=== PATIENT | male | born 1965 | race Hispanic/Latino ===

== ENCOUNTER 2019-10-21 14:02 | Inpatient (IN) | payer SELFPAY ==
[~2019-10-21] VITALS: Ht 152.4 cm; Wt 80.8 kg
--- NOTE | 2019-10-21 14:02 | NUR ---
PT TO ROOM VIA EMS; ALERT AND DROWSY AT THIS TIME
--- NOTE | 2019-10-21 14:29 | NUR ---
THE PATIENT STS THAT HE TOOK BACLOFEN X 2. HE WAS GIVEN NARCAN BY EMS AND BECAME RESPONSIVE AFTER ARLENE GIVEN. HE IS AWAKE AND ALERT AT THIS TIME.
[2019-10-21 14:46] LABS: HEMATOCRIT 45.5 % (39.0-50.0); HEMOGLOBIN 14.6 g/dl (14.0-18.0); IMMATURE GRANULOCYTES 0.8 % (0.0-5.0); MEAN CELL VOLUME 91.7 fL CALC (80.0-100.0); MEAN CORPUSCULAR HGB 29.4 pG CALC (26.0-32.0); MEAN CORPUSCULAR HGB CONC 32.1 g/dL CAL (32.0-36.0); NEUT# 17.85 thou/uL (1.82-7.42); RED BLOOD COUNT 4.96 mill/uL (4.70-6.10); RED CELL DISTRI WIDTH 13.7 % (11.5-15.5)
[2019-10-21 15:05] LABS: ACT PARTIAL THROMBO TIME 22.2 SECONDS (20.0-32.5); INTERNATIONAL NORMALIZED RATIO 1.2 RATIO (0.7-1.3); PROTHROMBIN TIME 11.7 SECONDS (9.0-12.5)
[2019-10-21 15:06] LABS: ALBUMIN 2.7 g/dL (3.2-5.0); ALKALINE PHOSPHATASE 74 u/l (38-126); ANION GAP 10 (6-22 (CALC)); BILIRUBIN, TOTAL 0.4 mg/dL (0.0-1.4); BUN 11 mg/dL (9-20); BUN/CREATININE RATIO 12 (12-20 (CALC)); CARBON DIOXIDE 24 mmol/l (22-30); CHLORIDE 104 mmol/l (95-108); CREATININE 0.9 mg/dL (0.7-1.3); ETHYL ALCOHOL 0 mg/dl (0-30); GFR > 60 ML/MIN (>=60 (CALC)); GFR FOR AFR.AMER. > 60 ML/MIN (>=60 (CALC)); POTASSIUM 3.2 mmol/l (3.5-5.1); SGOT/AST 24 u/l (17-59); SODIUM 134 mmol/l (137-146); TOTAL PROTEIN 4.8 g/dL (6.3-8.2)
--- NOTE | 2019-10-21 15:30 | NUR ---
The patient was given a urinal for urine. he is AAOx3. cooperative.
[2019-10-21 16:07] LABS: AMYLASE 42 u/l (30-110)
--- NOTE | 2019-10-21 16:20 | NUR ---
The patient is receiving antibiotics and iv fluid bolus. no complaint of pain.
[2019-10-21 16:49] LABS: URINE BILIRUBIN - DIPSTICK NEGATIVE (NEGATIVE); URINE BLOOD DIPSTICK NEGATIVE (NEGATIVE); URINE COLOR YELLOW; URINE GLUCOSE - DIPSTICK NEGATIVE (NEGATIVE); URINE KETONE NEGATIVE (NEGATIVE); URINE LEUK ESTERASE NEGATIVE (NEGATIVE); URINE NITRITE - DIPSTICK NEGATIVE (Negative); URINE PROTEIN - DIPSTICK NEGATIVE (NEG-TRACE); URINE SPECIFIC GRAVITY 1.025; URINE UROBILINOGEN - DIPSTICK 0.2 E.U./dL (0.2)
--- NOTE | 2019-10-21 16:59 | NUR ---
The patient up to urinate. no complaints at this time. iv fluids running.
--- NOTE | 2019-10-21 17:29 | NUR ---
ORDERS RECEIVED FROM DR. VELAZQUEZ. ADMIT TO TELE. PATIENT TO CT
--- NOTE | 2019-10-21 17:50 | NUR ---
THE PATIENT RETURNED FROM CT.WAITING FOR ROOM ASSIGNMENT.
--- NOTE | 2019-10-21 18:10 | NUR ---
ATTEMPTED TO GIVE REPORT TO NURSE ON FLOOR, SHE IS TO CALL BACK.
--- NOTE | 2019-10-21 18:31 | NUR ---
REPORT GIVEN TO MANINDER
--- NOTE | 2019-10-21 18:32 | NUR ---
REPORT RECIEVED FROM DARIUS ALVARADO.PT ARRIVED TO [facility] ROOM 281 VIA PORTABLE IN STABLE CONDITION ACCOMPAINED BY COARDARIUS Glover.PT AMBULATED FROM PORTABLE TO BED WITH STEADY GAIT. PT IS A/O X3 AND SERBIAN SPEAKING ONLY. VITALS OBTAINED. PT SETTLED INTO BED. #20G IN LAC FLUSHED, SITE APPEARS HEALTHY AND PATENT.RESPIRATIONS ARE EVEN AND UNLABORED WITH NO SIGNS OF DISTRESS NOTED. PT COMPLAINS OF PAIN IN EPIGASTRIC AND RIGHT KNEE. PT ORIENTED TO ROOM AND CALL LIGHT SYSTEM. ALL SAFETY PRECAUTIONS ARE IN PLACE WITH SERG LIGHT IN REACH. WILL CONTINUE TO MONITOR.
[2019-10-21 18:42] VITALS: BP 139/93
[2019-10-21 19:00] VITALS: BP 128/79
--- NOTE | 2019-10-21 21:38 | NUR ---
PT LAYING IN BED. A&O TO PLACE AND SELF. REORIENTATION NEEDED FOR CURRENT MONTH, PT EASILY REORIENTED. PT C/O OF SLIGHT RT KNEE PAIN THAT IS CHRONIC IN NATURE. PT REPORTS TO HAVE TAKEN 2 PAIN PILLS INSTEAD OF ONE. REPORTS TO HAVE HAD A SYNCOPAL EPISODE AFTER MEDICATION AND EXPERIENCED BLURRED VISION DUE TO HIM "NOT EATING ANYTHING BEFORE TAKING THEM." GENERALIZED TRACE EDEMA NOTED. PT REPORTS TO HAVE LOOSE STOOLS. RECENT TRAVELING BUT DENIES ANY SYMPTOMS RELATED TO C19. DRESSING CHANGED AND REINFORCED TO EMS SITE IN [facility], [place] @ 80 ML/HR INITIATED. ORIENTED PT TO ROOM. ASSESSMENT COMPLETED. DISCUSSED POC. CALL LIGHT IN REACH. COTNINUE TO MONITOR.
--- NOTE | 2019-10-22 00:30 | NUR ---
PT SLEEPING IN BED. RESP EVEN AND UNLABORED. CONTINUE TO MONITOR.
[2019-10-22 01:21] VITALS: BP 113/63
[2019-10-22 03:57] VITALS: BP 126/67
--- NOTE | 2019-10-22 05:55 | NUR ---
PT SLEEPING IN BED. RESP EVEN AND UNLABORED. CALL LIGHT IN REACH.CONTINUE TO MONITOR.
[2019-10-22 08:31] LABS: HEMATOCRIT 40.2 % (39.0-50.0); HEMOGLOBIN 12.9 g/dl (14.0-18.0); IMMATURE GRANULOCYTES 0.3 % (0.0-5.0); MEAN CELL VOLUME 91.4 fL CALC (80.0-100.0); MEAN CORPUSCULAR HGB 29.3 pG CALC (26.0-32.0); MEAN CORPUSCULAR HGB CONC 32.1 g/dL CAL (32.0-36.0); NEUT# 4.95 thou/uL (1.82-7.42); RED BLOOD COUNT 4.4 mill/uL (4.70-6.10)
[2019-10-22 08:56] LABS: ALBUMIN 3.1 g/dL (3.2-5.0); ALKALINE PHOSPHATASE 62 u/l (38-126); ANION GAP 7 (6-22 (CALC)); BILIRUBIN, TOTAL 0.3 mg/dL (0.0-1.4); BUN 8 mg/dL (9-20); BUN/CREATININE RATIO 12 (12-20 (CALC)); CARBON DIOXIDE 27 mmol/l (22-30); CHLORIDE 108 mmol/l (95-108); CREATININE 0.6 mg/dL (0.7-1.3); GFR > 60 ML/MIN (>=60 (CALC)); GFR FOR AFR.AMER. > 60 ML/MIN (>=60 (CALC)); POTASSIUM 3.8 mmol/l (3.5-5.1); SGOT/AST 25 u/l (17-59); SODIUM 138 mmol/l (137-146); TOTAL PROTEIN 5.5 g/dL (6.3-8.2)
[2019-10-22] MEDS ORDERED: METRONIDAZOL500 MG PO (11:31)
[2019-10-22] MEDS ORDERED: CIPROFLOXACN500 MG PO (11:31)
[2019-10-22 12:00] VITALS: BP 117/60
--- NOTE | 2019-10-22 13:16 | NUR ---
Received lying in bed, VS taken, Afebrile. Lungs clear. No c\o pain or discomfort. No s/s of hyper/hypoglycemic reactions. Appetite good.
--- NOTE | 2019-10-22 13:25 | NUR ---
Patient IV came out during shower. IV 22g reinserted into right anticubical space without difficulty. IV restarted
[2019-10-22 15:54] VITALS: BP 111/64
[2019-10-22 19:00] VITALS: BP 122/63
--- NOTE | 2019-10-22 20:40 | NUR ---
PT IV ANTIBIOTIC THERAPY COMPLETED AT THIS TIME. IV REMOVED INTACT AND SIGHT APPEARS HEALTHY. STAFF INTERPRETER REMOVED. PT GIVEN DC PAPERS PREVIOUSLY EXPLAINED BY DAY NURSE W/TECHNICIAN AND SIGNED ALONG W/PRESCRIPTIONS. PT ACCOMPANIED TO LOBBY BY SECURITY TECHNICIAN VIA WC. SUPERVISION NOTIFIED OF NEED FOR TAXI/PAY AND CALL. PT WAS IN STABLE CONDITION UPON LEAVING.
== END 2019-10-22 20:40 | disposition home or self-care (01) | DRG 312 ==
LOC: ED 14:02 → ED-I 17:00 → ED 17:20 → MS2 17:21
PROVIDERS: Nurse Practitioner; ADMIT Internal Medicine; ATTEND Internal Medicine
DX: R55 Syncope and collapse (principal); D72.829 Elevated white blood cell count, unspecified; R41.82 Altered mental status, unspecified; M25.561 Pain in right knee; G89.29 Other chronic pain; K29.70 Gastritis, unspecified, without bleeding; E87.6 Hypokalemia; E86.0 Dehydration; R19.7 Diarrhea, unspecified; Z86.19 Personal history of other infectious and parasitic diseases
CPT/HCPCS: J0692; Q9967